=== PATIENT | male | born 1955 | race Caucasian/White ===

== ENCOUNTER 2022-05-09 13:00 | Outpatient (RCR) | payer MEDICARE, SELFPAY | END 2023-03-27 11:16 | disposition home or self-care (01) | PROVIDERS: PCP Family Medicine; Visit Provider Family Medicine | DX: G31.84 Mild cognitive impairment of uncertain or unknown etiology (principal); Z51.89 Encounter for other specified aftercare | CPT/HCPCS: 97535 ==

== ENCOUNTER 2024-07-14 13:00 | Outpatient (RCR) | payer MEDICARE, SELFPAY | END 2024-08-11 12:49 | disposition home or self-care (01) | PROVIDERS: PCP Family Medicine; Visit Provider Psychiatry & Neurology Neurology | DX: G20.C Parkinsonism, unspecified (principal); G31.84 Mild cognitive impairment of uncertain or unknown etiology; Z51.89 Encounter for other specified aftercare | CPT/HCPCS: 97110; 97112; 97116; 97161; 97530 ==